=== PATIENT | female | born 1975 | race Caucasian/White ===

== ENCOUNTER 2016-11-19 13:25 | Day surgery (SDC) | payer BC ==
[~2016-11-19] VITALS: Ht 160 cm; Wt 105.2 kg
[2016-11-19] MEDS ORDERED: HYZAAR 50-12.1 UDTAB PO (13:43)
[2016-11-19 13:44] VITALS: BP 134/94; PULSE 92; TEMP 98.3
[2016-11-19 15:35] VITALS: BP 122/85; PULSE 83; TEMP 98
[2016-11-19 15:50] VITALS: BP 124/83; PULSE 77
[2016-11-19 16:05] VITALS: BP 131/87; PULSE 79
== END 2016-11-19 16:20 ==
LOC: SDCO 13:25
DX: K31.7 Polyp of stomach and duodenum (principal); K21.0 Gastro-esophageal reflux disease with esophagitis; K22.2 Esophageal obstruction; K44.9 Diaphragmatic hernia without obstruction or gangrene; K29.30 Chronic superficial gastritis without bleeding; K90.0 Celiac disease; I10 Essential (primary) hypertension; R12 Heartburn; Z68.41 Body mass index [BMI] 40.0-44.9, adult; R74.8 Abnormal levels of other serum enzymes
CPT/HCPCS: OP; J2250; J2405; J3010; J7030

== ENCOUNTER → 2017-07-30 | Outpatient (CLI) | payer BC ==
[~2017-07-30] MED LIST: HYZAAR 50-12.1 UDTAB PO
== END ==
LOC: MC.RAD 08:18
DX: Z01.89 Encounter for other specified special examinations (principal)